=== PATIENT | female | born 1965 | race Caucasian/White ===

== ENCOUNTER → 2020-01-30 | Outpatient (CLI) | payer BC ==
[~2020-01-30] VITALS: Ht 160 cm; Wt 90.0 kg
[~2020-01-30] MED LIST: CARV6.25 PO; CARV6.252; CATHETER FLUSH 10 ML SYR IV PRN; ESTR0.3T PO; FURO40TA4 PO; HYDR-3583 PO; INSU100C7 SQ; MELA1TAB11 PO; MULT-241 PO; OMEP20CA6; OMEP20CA6 PO; SERT50TA PO; TRIA1TAB PO; TRIA50CA; TRM50T PO
[2020-01-30 12:54] VITALS: BP 154/90
--- NOTE | 2020-01-30 12:54 | Cardiology Stress Test Report ---
Stress Test Report Date of Procedure/Referring: Date of Procedure: Jan 30, 2020 PCP Emilio Hodge MD Admitting Physician Patti Tan MD Indications: Palpitation Baseline Heart Rate: 73 Baseline Blood Pressure: Blood Pressure Systolic: 154 Blood Pressure Diastolic: 90 Baseline EKG: Baseline EKG: normal sinus rhythm Summary: After explaining the procedure and details to the patient, she signed the consent and was brought to the stress nuclear laboratory. Patient exercised on standard Dhruv protocol, EKG, heart rate and blood pressure were monitored continuously, resting and stress doses of radio tracer were injected, imaging was acquired and reviewed in the short axis, horizontal long axis and vertical long axis views Patient was able to exercise for a total of 7:30 minutes on Dhruv protocol, METs 9.1 Maximum heart rate 151 Maximum blood pressure 256/93 Stress EKG, Minimal nondiagnostic changes Recovery EKG, Return to baseline TID: 1.09 SSS: 9 SDS: 5 EF: 70 Conclusion: 1. Fair exercise tolerance for total of 7 minutes and 30 seconds on Dhruv protocol, 9.1 METs achieving 91 percent of maximum expected heart rate 2. Exercise induced wide complex tachycardia/nonsustained ventricular tachycardia, patient was asymptomatic during the test 3. Severe hypertensive response to exercise with peak blood pressure 256/93 4. Breast attenuation with mild ischemia involving the basal to mid anterolateral and inferolateral wall 5. Normal left ventricular size, EF 70 percent EIMLIO HODGE MD Jan 30, 2020 12:54
== END ==
LOC: CARD 07:45
PROVIDERS: ATTEND Internal Medicine Cardiovascular Disease
DX: I27.20 Pulmonary hypertension, unspecified (principal); E11.9 Type 2 diabetes mellitus without complications; E78.5 Hyperlipidemia, unspecified
CPT/HCPCS: 78452; 93017; A9502

== ENCOUNTER → 2020-02-15 | Day surgery (SDC) | payer BC ==
[2020-02-15] VITALS (9 sets, daily range): BP systolic 153–204; BP diastolic 79–106
[~2020-02-15] VITALS: Ht 160 cm; Wt 93.0 kg
[~2020-02-15] MED LIST changes: +ALLO100T PO; +ATOR10TA PO; +ATOR10TA66 PO; -CATHETER FLUSH 10 ML SYR IV PRN; +HEParin (CATH LAB) 2,000 ML IV ONE; +HEParin 1000 UNIT/ML (10ML VIAL) FOR BOLUS ONE; +LIDOCAINE 1% INJ 20 ML 20 ML VIAL ONE; +MIDAZOLAM 5 MG/5 ML (VERSED) VIAL ONE; +MTP25TSR PO; +NITRO DRIP 25000 MCG/D5W 250 ML IV ONE; +NS IV 1000 ML 1,000 ML IV SCH; +NS IV 1000 ML 1,000 ML ONE; +VERAPAMIL 5 MG/2 ML (CALAN) VIAL IV ONE; +fentaNYL INJECTION 100 MCG/2 ML AMP ONE
[2020-02-15 07:41] LABS: BILIRUBIN,URINE NEGATIVE (NEGATIVE); CLARITY,URINE CLEAR; COLOR,URINE YELLOW; GLUCOSE, URINE (UA) NEGATIVE (NEGATIVE); HEMOGLOBIN 12.3 g/dL (11.5-16.0); KETONES,URINE NEGATIVE (NEGATIVE); LEUKOCYTE ESTERASE ,URINE TRACE (NEGATIVE); MEAN PLATELET VOLUME 10.8 fL (9.0-12.2); NITRITE,URINE NEGATIVE (NEGATIVE); PROTEIN,URINE NEGATIVE (NEGATIVE); WHITE BLOOD COUNT 5.9 10^3/uL (4.3-11.0)
[2020-02-15 07:49] LABS: BACTERIA,URINE NEGATIVE /HPF; RENAL EPITHELIAL CELLS,URINE 0-2 /HPF; SQUAMOUS EPITHELIAL CELL,UR 0-2 /HPF; WBC,URINE 0-2 /HPF
[2020-02-15 07:50] LABS: AMORPHOUS SEDIMENT,UR FEW AMOR URATES /LPF
[2020-02-15 07:53] LABS: INR 0.9 (0.8-1.4); PROTHROMBIN TIME PATIENT 12.8 SEC (12.2-14.7)
[2020-02-15 08:00] LABS: ALANINE AMINOTRANSFERASE 31 U/L (0-55); ALBUMIN 4.8 GM/DL (3.2-4.5); ALKALINE PHOSPHATASE 68 U/L (40-136); BILIRUBIN,TOTAL 0.6 MG/DL (0.1-1.0); BUN/CREATININE RATIO 14; CALCIUM 11.2 MG/DL (8.5-10.1); CARBON DIOXIDE 24 MMOL/L (21-32); CHLORIDE 104 MMOL/L (98-107); CHOLESTEROL 169 MG/DL (< 200); CREATININE SERUM 1.08 MG/DL (0.60-1.30); GFR ESTIMATED 53; GLUCOSE 205 MG/DL (70-105); HDL CHOLESTEROL 40 MG/DL (40-60); POTASSIUM 4.1 MMOL/L (3.6-5.0); SODIUM 141 MMOL/L (135-145); TOTAL PROTEIN 7.8 GM/DL (6.4-8.2); TRIGLYCERIDES 177 MG/DL (<150); VLDL CHOLESTEROL 35 MG/DL (5-40)
--- NOTE | 2020-02-15 08:19 | Cardiac Procedure Note-CS/ASA ---
Pre-Procedure Note Pre-Op Procedure Note H&P Reviewed The H&P was reviewed, patient examined and no changes noted. Date H&P Reviewed: Feb 15, 2020 Time H&P Reviewed: 08:19 Conscious Sedation Pre-Proced Time 08:19 ASA Score 3 For ASA 3 and 4: Consider anesthesia and medical clearance. Also, for patients with a history of failed moderate sedation consider anesthesia. Airway Lungs Heart ASA score ASA 1: a normal healthy patient ASA 2: a patient with a mild systemic disease (mid diabetes, controlled hypertension, obesity x ASA 3: a patient with a severe systemic disease that limits activity (angina, COPD, prior Myocardial infarction) ASA 4: a patient with an incapacitating disease that is a constant threat to life (CHF, renal failure) ASA 5: a moribund patient not expected to survive 24 hrs. (ruptured aneurysm) ASA 6: a declared brain- patient whose organs are being harvested. For emergent operations, add the letter E after the classification Mallampati Classification Grade 3 Sedation Plan Analgesia, Amnesia, Plan communicated to team members, Discussed options with patient/fam, Discussed risks with patient/fam The patient is an appropriate candidate to undergo the planned procedure, sedation, and anesthesia. The patient immediately re-assessed prior to indication. EMILIO LOPEZ MD Feb 15, 2020 08:19
--- NOTE | 2020-02-15 08:19 | Diagnostic Imaging Report ---
INDICATION: Chest pain. Portable chest 7:49 AM FINDINGS: Heart size and pulmonary vascularity are normal. Lungs are clear. There are no effusions or pneumothoraces. IMPRESSION: Negative chest. Dictated by: Dictated on workstation # [id number]
--- NOTE | 2020-02-15 09:55 | Discharge Inst-Post CATH ---
Discharge Inst-CATH/EP Problems Reviewed?: Yes Post Cardiac Cath/EP D/C Inst Follow Up/Plan Appointment with Dr. Hodge's office in 4 weeks <b>CARDIAC CATH/EP PROCEDURE DISCHARGE INSTRUCTIONS</b> ACTIVITY * Go Home directly and rest. * Limit activity of the leg (or wrist if it was used) for 7 days including aerobics, swimming, jogging, bicycling, etc. * Restrict stair-climbing for 7 days if possible, if not, climb up with your non-cath leg, then bring together on the same step. * Avoid lifting, pushing, pulling or excessive movement of the affected extremity for 7 days. * Customary sexual activity may be resumed after 2 days-use caution not to use a position that strains or causes pain to the affected extremity. * No driving for 24 hours. * NO SMOKING. * Avoid straining for bowel movements for 7 days. * Gentle walking on level ground is allowed. * Returning to work will depend on the type of procedure and the results. Your doctor will discuss this with you. CALL YOUR DOCTOR FOR ANY OF THE FOLLOWING: *If bleeding from the puncture site occurs- Apply gentle pressure to site with clean cloth and call your doctor or EMS. * If a knot or lump forms under the skin, increases in size, or causes pain. * If bruising appears to be worsening or moving further down your leg instead of disappearing. * Temperature above 101 F. CARE OF YOUR GROIN INCISION; * Bruising or purple discoloration of the skin near the puncture site is common. * You may shower only, no bathtub bathing for 5 days. Be careful to avoid slipping as your leg may feel stiff. * If a closure device was used on your femoral artery, please see the attached guide regarding care of the device and your leg. * Leave dressing on FOR 24 hours. CARE OF YOUR WRIST INCISION; * Bruising or purple discoloration of the skin near the puncture site is common. * You may shower. * DO NOT submerge wrist. * Leave dressing on FOR 24 hours. EMILIO HODGE MD Feb 15, 2020 09:55
--- NOTE | 2020-02-15 10:00 | Cardiac Cath Report ---
Cardiac Cath Report Physician (s)/Scale Model Maker (s) Physician EMILIO LOPEZ MD Pre-Procedure Diagnosis Pre-Procedure Diagnosis: chest pain, coronary artery disease Post-Procedure Note Procedure Start Date: Feb 15, 2020 Name of Procedure: Left heart catheterization Findings/Procedure Note PROCEDURE NOTE: After explaining the procedure to the patient, all pros and cons were explained, all questions were answered. The patient signed the consent and then she was placed on the cardiac catheterization laboratory. Groin was prepped SL fashion local anesthesia was used. Sheath placed in the right radial artery. [place] catheter was used, advanced to the left ventricular cavity, pressure was measured, pullback LV to aorta was done, intubated the right and left coronary system and angiogram was done. Left ventriculogram was not done, pressure was measured At the end of the procedure the sheath was removed. Vascular band was used FINDINGS: Hemodynamics LV 139/15, end-diastolic pressure 15 Aorta 131/65 mean of 94 ANATOMY: Left Main is free of obstructive disease Left Anterior Descending has mild to moderate disease in the proximal portion, nonobstructive disease otherwise no significant obstructive disease Left Circumflex is nondominant artery with no obstructive disease Right Coronory Artery is dominant artery with mild disease nonobstructive disease LV Gram was not done, pressure was measured CONCLUSION: 1. Lbaf-vc-bhaumlpp proximal LAD stenosis, nonobstructive disease otherwise no sig obstructive disease was noted 2. Normal left ventricular end-diastolic pressure DISCUSSION AND RECOMMENDATION: Abnormal stress test is probably due to extracardiac attenuation, medical therapy is recommended no intervention is warranted Anesthesia Type: Conscious Sedation Estimated blood loss (mL): 10 ml Contrast Amount: 30 ml Total Radiation Dose: 343 mGy Post-Procedure Diagnosis Post-operative diagnosis: Chest pain Coronary artery disease Hypertension Hyperlipidemia EMILIO LOPEZ MD Feb 15, 2020 10:00
--- NOTE | 2020-02-15 12:28 | NUR ---
NOTE TO DR LOPEZ CONCERNING PT'S ONGOING HTN, ORDERS WILL BE TAKEN.
--- NOTE | 2020-02-15 13:30 | NUR ---
DISCHARGED PER W/C, ACCOMPANIED BY VIJAYA, BY W/C TO WAITING PRIVATE CAR TO GO HOME
== END ==
LOC: CATH 09:00 → SDC 10:04
PROVIDERS: ATTEND Internal Medicine Cardiovascular Disease
DX: I25.10 Atherosclerotic heart disease of native coronary artery without angina pectoris (principal); I10 Essential (primary) hypertension; E78.5 Hyperlipidemia, unspecified; G47.33 Obstructive sleep apnea (adult) (pediatric); I27.20 Pulmonary hypertension, unspecified; I36.1 Nonrheumatic tricuspid (valve) insufficiency; R94.39 Abnormal result of other cardiovascular function study; K21.9 Gastro-esophageal reflux disease without esophagitis; M19.90 Unspecified osteoarthritis, unspecified site; E11.9 Type 2 diabetes mellitus without complications; Z79.899 Other long term (current) drug therapy; Z88.1 Allergy status to other antibiotic agents; Z90.49 Acquired absence of other specified parts of digestive tract; Z90.710 Acquired absence of both cervix and uterus; Z87.891 Personal history of nicotine dependence; Z80.9 Family history of malignant neoplasm, unspecified
CPT/HCPCS: 71045; 80053; 80061; 81000; 85027; 85610; 85730; 87081; 93458; C1894; 36415

== ENCOUNTER 2021-02-19 11:26 | Emergency (ER) | payer BC ==
[~2021-02-19] VITALS: Ht 160 cm; Wt 97.0 kg
[~2021-02-19 11:26] MED LIST changes: -HEParin (CATH LAB) 2,000 ML IV ONE; -HEParin 1000 UNIT/ML (10ML VIAL) FOR BOLUS ONE; -LIDOCAINE 1% INJ 20 ML 20 ML VIAL ONE; -MIDAZOLAM 5 MG/5 ML (VERSED) VIAL ONE; -NITRO DRIP 25000 MCG/D5W 250 ML IV ONE; -NS IV 1000 ML 1,000 ML IV SCH; -NS IV 1000 ML 1,000 ML ONE; -VERAPAMIL 5 MG/2 ML (CALAN) VIAL IV ONE; -fentaNYL INJECTION 100 MCG/2 ML AMP ONE
--- OUTSIDE RECORDS SUMMARY | 2021-02-19 11:29 | XMS REPORT | Clinical Summary ---
Author Author [facility] Organization [facility] Address Unknown Phone Unavailable Care Team Providers Care Acetylene Torch Operator Name Role Phone Tim Kunz MD Unavailable Patti Tan MD PCP Neida Catherine HIGH SCHOOL COMPUTER SCIENCE TEACHER-PERINATAL SPECIALIST Unavailable [phone] Shree Swanson MD Unavailable Vito De MD Unavailable Vito Garcia MD Unavailable Source Comments Some departments are not documenting in the electronic medical record. If you d o not see the information that you expected, contact Release of Information in [facility] Health Information Management department at [phone] for further assistan ce in locating additional records.[facility] Allergies Comments Active Allergy Reactions Severity Noted Date Erythromycin CHEST 10/12/2013 TIGHTNESS, SHORTNESS OF BREATH Medications End Date Status Medication Sig Dispensed Refills Start Date Active lisinopril (PRINIVIL; Take 20 mg by 0 ZESTRIL) 20 mg tablet mouth daily. Active sertraline (ZOLOFT) 50 mg Take 50 mg by 0 tablet mouth daily. Active omeprazole DR(+) Take 20 mg by 0 (PRILOSEC) 20 mg capsule mouth twice daily. Active turmeric root extract 500 Take by 0 mg cap mouth. Active HYDROcodone/acetaminophen Take 1 Tab by 0 (NORCO; VICODIN) 5-325 mg mouth every 4 tablet hours as needed. Active pravastatin (PRAVACHOL) Take 40 mg by 0 40 mg tablet mouth daily. Active insulin glargine (LANTUS Inject 40 0 SOLOSTAR) 100 unit/mL (3 Units into mL) injection PEN area(s) as directed at bedtime daily. 40 units AM, 35 units HS Active insulin lispro(+) Inject 20 0 (HUMALOG) 100 unit/mL Units into injection area(s) as directed three times daily before meals. Active ERGOCALCIFEROL (VITAMIN Take 2,000 mg 0 D2) (VITAMIN D PO) by mouth at bedtime daily. Active pregabalin (LYRICA) 50 mg Take 50 mg by 0 capsule mouth three times daily. Active topiramate (TOPAMAX) 25 Take 50 mg by 0 mg tablet mouth twice daily. Active Problems Problem Noted Date Polyarthralgia 10/12/2013 History of pulmonary hypertension 10/12/2013 Fatigue 10/12/2013 Rash 10/12/2013 GERD (gastroesophageal reflux disease) 10/12/2013 Medical History Medical History Date Comments Diabetes mellitus (HCC) Basal cell carcinoma Family History Medical History Relation Name Comments Cancer Mother skin Relation Name Status Comments Mother Social History Date Tobacco Use Types Packs/Day Years Used Never Smoker Comments Alcohol Use Standard Drinks/Week No 0 (1 standard drink = 0.6 o z pure alcohol) Sex Assigned at Date Recorded Not on file Last Filed Vital Signs Reading Time Taken Comments Vital Sign 127/76 11/15/2013 1:35 PM CDT Blood Pressure 72 11/15/2013 1:35 PM CDT Pulse 37.1 C (98.8 F) 11/15/2013 1:35 PM CDT Temperature 17 11/15/2013 1:35 PM CDT Respiratory Rate - - Oxygen Saturation - - Inhaled Oxygen Concentration 100.7 kg (222 lb) 01/24/2014 2:09 PM CDT Weight 160 cm (5' 3") 01/24/2014 2:09 PM CDT Height 39.33 01/24/2014 2:09 PM CDT Body Mass Index Plan of Treatment Health Maintenance Due Date Last Done Comments HIV SCREENING 01/17/1980 DTAP/TDAP VACCINES (1 - 1983 Tdap) PHYSICAL (COMPREHENSIVE) 1983 EXAM CERVICAL CANCER SCREENING 1986 BREAST CANCER SCREENING 2005 COLORECTAL CANCER 2015 SCREENING SHINGLES RECOMBINANT 2015 VACCINE (1 of 2) INFLUENZA VACCINE 11/18/2020 HEPATITIS C SCREENING Completed 10/12/2013 Results Not on filefrom Last 3 Months Insurance Type Payer Benefit Subscriber ID Effective Phone Address Plan / Dates Group PPO BCBS [facility] [id number] 2013- [facility] CARE Present BLUE [phone] Advance Directives Patient Information Services Tech Explanation Type Date Recorded Advance 10/12/2013 2:36 PM Directive/DPOA
--- NOTE | 2021-02-19 11:34 | ED Chest Pain ---
General Chief Complaint: Chest Pain Stated Complaint: CP Source: patient, EMS Exam Limitations: no limitations History of Present Illness Date Seen by Provider: Feb 19, 2021 Time Seen by Provider: 11:32 Initial Comments To ER by EMS from Dr. Baker's office in [facility] where she is employed with reports of sharp left-sided chest pain slightly worsened by breathing that radiates up into her neck and was associated with some shortness of breath and nausea. This began 15 minutes prior to calling EMS at about 11 AM. She was given 324 mg of aspirin chewable. No nitroglycerin. She was hypertensive initially about 1 80-200 systolic currently down to 160. She has a history of abnormal stress test in January 2020. That was followed with a cardiac catheterization showing mild to moderate proximal LAD stenosis with otherwise nonobstructive disease and no intervention. She has a history of hypertension and hyperlipidemia. Timing/Duration: 1 hour, changing over time Severity/Quality: moderate, sharp Location: central Radiation: neck Prior CP/Workup: no prior chest pain ASA po PODIATRIC PHYSICIAN: No NTG SL PODIATRIC PHYSICIAN: No Allergies and Home Medications Allergies Coded Allergies: erythromycin base (Unverified Allergy, Unknown, 07/05/10) Patient Home Medication List Home Medication List Reviewed: Yes Allopurinol (Allopurinol) 100 Mg Tablet, 100 MG PO BID, (Reported) Entered as Reported by: TIEN ANDREW on 02/15/20 07 Atorvastatin Calcium (Atorvastatin Calcium) 10 Mg Tablet, 10 MG PO HS, (Reported) Entered as Reported by: TIEN ANDREW on 02/15/20 0736 Atorvastatin Calcium (Lipitor) 10 Mg Tablet, 10 MG PO DAILY Prescribed by: EMILIO LOPEZ on 02/15/20 1106 Hydrocodone Bit/Acetaminophen (Lortab 5 Mg) 1 Tab Tab, 1-2 EA PO Q 4 - 6 HR PRN, (Reported) Entered as Reported by: SAMANTA AVENDANO on 07/05/10 1326 Metoprolol Succinate (Metoprolol Succinate) 25 Mg Tab.er.24h, 25 MG PO DAILY, (Reported) Entered as Reported by: TIEN ANDREW on 02/15/20 0736 Multivits W-Fe,Other Min (Flintstones Complete) 1 Tab.chew Tab.chew, 2 TAB.CHEW PO DAILY, (Reported) Entered as Reported by: JOSEPH ROMERO on 07/02/10 1352 Review of Systems Review of Systems Constitutional: see HPI EENTM: No Symptoms Reported Respiratory: No Symptoms Reported Cardiovascular: See HPI, Chest Pain Gastrointestinal: See HPI, Abdominal Pain Genitourinary: No Symptoms Reported Musculoskeletal: no symptoms reported Skin: no symptoms reported Psychiatric/Neurological: No Symptoms Reported Endocrine: No Symptoms Reported Hematologic/Lymphatic: No Symptoms Reported Past Auujbzb-Hrjijb-Cparta Hx Immunizations Up To Date Tetanus Booster (TDap): Less than 5yrs Past Medical History Abdominal, Adenoidectomy Respiratory: Yes (PULMONARY HYPERTENSION/SHORTNESS OF BREATH WITH EXERTION) Currently Using BIPAP: Yes Cardiac: Yes Neurological: No Reproductive Disorders: No Genitourinary: Yes Gastrointestinal: Yes (DIVERTICULITIS) Cancer: No Blood Disorders: Yes Physical Exam Vital Signs Vital Signs - First Documented 02/19/21 11:26 Temp 36.3 Pulse 60 Resp 16 B/P (MAP) 193/122 (145) Pulse Ox 97 O2 Delivery Room Air Capillary Refill : Height, Weight, BMI Height: '" Weight: lbs. oz. kg; 36.32 BMI Method: General Appearance: No Apparent Distress, WD/WN Neck: Full Range of Motion, Normal Inspection Respiratory: Lungs Clear, Normal Breath Sounds, No Accessory Muscle Use, No Respiratory Distress Cardiovascular: Regular Rate, Rhythm, Normal Peripheral Pulses Gastrointestinal: Normal Bowel Sounds, Non Tender, Soft Extremity: Normal Capillary Refill, Normal Inspection Neurologic/Psychiatric: Alert, Oriented x3 Skin: Normal Color, Warm/Dry Progress/Results/Core Measures Results/Orders Lab Results Laboratory Tests Test 02/19/21 11:40 02/19/21 13:58 Range/Units White Blood Count 6.6 4.3-11.0 10^3/uL Red Blood Count 4.57 3.80-5.11 10^6/uL Hemoglobin 14.0 11.5-16.0 g/dL Hematocrit 42 35-52 % Mean Corpuscular Volume 91 80-99 fL Mean Corpuscular Hemoglobin 31 25-34 pg Mean Corpuscular Hemoglobin Concent 34 32-36 g/dL Red Cell Distribution Width 13.5 10.0-14.5 % Platelet Count 176 130-400 10^3/uL Mean Platelet Volume 11.5 9.0-12.2 fL Immature Granulocyte % (Auto) 1 % Neutrophils (%) (Auto) 67 42-75 % Lymphocytes (%) (Auto) 21 12-44 % Monocytes (%) (Auto) 9 0-12 % Eosinophils (%) (Auto) 2 0-10 % Basophils (%) (Auto) 1 0-10 % Neutrophils # (Auto) 4.4 1.8-7.8 10^3/uL Lymphocytes # (Auto) 1.4 1.0-4.0 10^3/uL Monocytes # (Auto) 0.6 0.0-1.0 10^3/uL Eosinophils # (Auto) 0.2 0.0-0.3 10^3/uL Basophils # (Auto) 0.0 0.0-0.1 10^3/uL Immature Granulocyte # (Auto) 0.0 0.0-0.1 10^3/uL Prothrombin Time 13.3 12.2-14.7 SEC INR Comment 1.0 0.8-1.4 Activated Partial Thromboplast Time 30 24-35 SEC Sodium Level 137 135-145 MMOL/L Potassium Level 4.6 3.6-5.0 MMOL/L Chloride Level 104 98-107 MMOL/L Carbon Dioxide Level 19 L 21-32 MMOL/L Anion Gap 14 5-14 MMOL/L Blood Urea Nitrogen 19 H 7-18 MG/DL Creatinine 0.84 0.60-1.30 MG/DL Estimat Glomerular Filtration Rate 70 BUN/Creatinine Ratio 23 Glucose Level 148 H 70-105 MG/DL Calcium Level 9.9 8.5-10.1 MG/DL Corrected Calcium 8.5-10.1 MG/DL Magnesium Level 1.9 1.6-2.4 MG/DL Total Bilirubin 0.5 0.1-1.0 MG/DL Aspartate Amino Transf (AST/SGOT) 60 H 5-34 U/L Alanine Aminotransferase (ALT/SGPT) 75 H 0-55 U/L Alkaline Phosphatase 101 40-136 U/L Myoglobin 39.8 10.0-92.0 NG/ML Troponin I < 0.028 <0.028 NG/ML B-Type Natriuretic Peptide < 10.0 <100.0 PG/ML Total Protein 7.7 6.4-8.2 GM/DL Albumin 4.7 H 3.2-4.5 GM/DL Procalcitonin 0.13 H <0.10 NG/ML My Orders Orders - MCKINLEY LINN APRN Fentanyl Inj (Sublimaze Injection) (02/19/21 11:45) Clonidine Tablet (Catapres Tablet) (02/19/21 11:45) Cbc With Automated Diff (02/19/21 11:55) Magnesium (02/19/21 11:55) Chest 1 View, Ap/Pa Only (02/19/21 11:55) Ekg Tracing (02/19/21 11:55) Comprehensive Metabolic Panel (02/19/21 11:55) Myoglobin Serum (02/19/21 11:55) Protime With Inr (02/19/21 11:55) Partial Thromboplastin Time (02/19/21 11:55) O2 (02/19/21 11:55) Monitor-Rhythm Ecg Trace Only (02/19/21 11:55) Lipid Panel (02/20/21 06:00) Ed Iv/Invasive Line Start (02/19/21 11:55) BNP (02/19/21 11:55) Troponin I (02/19/21 11:55) Ondansetron Injection (Zofran Injectio (02/19/21 12:15) Ondansetron Injection (Zofran Injectio (02/19/21 12:07) Procalcitonin (Pct) (02/19/21 12:21) Troponin I (02/19/21 13:27) Medications Given in ED Current Medications Medications Dose Ordered Sig/Alcides Route Start Time Stop Time Status Last Admin Dose Admin Ondansetron HCl 4 mg ONCE ONCE IVP 02/19/21 12:15 02/19/21 12:16 DC 02/19/21 12:08 4 MG Vital Signs/I&O 02/19/21 11:26 Temp 36.3 Pulse 60 Resp 16 B/P (MAP) 193/122 (145) Pulse Ox 97 O2 Delivery Room Air Departure Communication (Admissions) Her EKG shows sinus rhythm at 61 no ectopy normal intervals no ST segment change. 1423-her pain is gone. She does report that she choked on some CABG a few days ago, given this with the infiltrate seen on x-ray could represent an aspiration pneumonitis. As such we will put her on some Levaquin/prednisone and discharge home. Impression Primary Impression: Chest pain Additional Impression: Aspiration pneumonitis Disposition: HOME, SELF-CARE Condition: Stable Departure-Patient Inst. Decision time for Depature: 14:22 Referrals: LIANA STANLEY MD (PCP/Family) Primary Care Physician Patient Instructions: Community-Acquired Pneumonia in Adults Scripts Levofloxacin (Levofloxacin) 500 Mg Tablet 500 MG PO DAILY, #5 TAB Prov: MCKINLEY LINN APRN 02/19/21 Prednisone (Prednisone) 20 Mg Tab 40 MG PO DAILY, #6 TAB 0 Refills Prov: MCKINLEY LINN APRN 02/19/21 MCKINLEY LINN APRN Feb 19, 2021 11:34
[2021-02-19] MEDS ORDERED: cloNIDine 0.1 MG (CATAPRES) TAB PO ONE (11:45)
[2021-02-19] MEDS ORDERED: fentaNYL INJ 100 MCG/2 ML AMP IVP ONE (11:45)
[2021-02-19 12:03] LABS: BASOPHILS % (AUTO) 1 % (0-10); EOSINOPHILS # (AUTO) 0.2 10^3/uL (0.0-0.3); EOSINOPHILS % (AUTO) 2 % (0-10); HEMATOCRIT 42 % (35-52); LYMPHOCYTES # (AUTO) 1.4 10^3/uL (1.0-4.0); LYMPHOCYTES % (AUTO) 21 % (12-44); MEAN CORPUSCULAR HEMOGLOBIN 31 pg (25-34); MEAN CORPUSCULAR HGB CONC 34 g/dL (32-36); MEAN CORPUSCULAR VOLUME 91 fL (80-99); MEAN PLATELET VOLUME 11.5 fL (9.0-12.2); MONOCYTES # (AUTO) 0.6 10^3/uL (0.0-1.0); MONOCYTES % (AUTO) 9 % (0-12); NEUTROPHILS # (AUTO) 4.4 10^3/uL (1.8-7.8); NEUTROPHILS % (AUTO) 67 % (42-75); PLATELET COUNT 176 10^3/uL (130-400); WHITE BLOOD COUNT 6.6 10^3/uL (4.3-11.0)
[2021-02-19] MEDS ORDERED: ONDANSETRON 4 MG/2 ML (SDV) Z0FRAN ONE (12:07)
[2021-02-19 12:09] LABS: PROTHROMBIN TIME PATIENT 13.3 SEC (12.2-14.7)
[2021-02-19] MEDS ORDERED: ONDANSETRON 4 MG/2 ML (SDV) Z0FRAN IVP ONE (12:15)
[2021-02-19 12:16] LABS: ALANINE AMINOTRANSFERASE 75 U/L (0-55); ALBUMIN 4.7 GM/DL (3.2-4.5); ALKALINE PHOSPHATASE 101 U/L (40-136); BILIRUBIN,TOTAL 0.5 MG/DL (0.1-1.0); BUN/CREATININE RATIO 23; CALCIUM 9.9 MG/DL (8.5-10.1); CARBON DIOXIDE 19 MMOL/L (21-32); CHLORIDE 104 MMOL/L (98-107); CREATININE SERUM 0.84 MG/DL (0.60-1.30); GFR ESTIMATED 70; GLUCOSE 148 MG/DL (70-105); MAGNESIUM 1.9 MG/DL (1.6-2.4); POTASSIUM 4.6 MMOL/L (3.6-5.0); SODIUM 137 MMOL/L (135-145); TOTAL PROTEIN 7.7 GM/DL (6.4-8.2)
--- NOTE | 2021-02-19 12:19 | Diagnostic Imaging Report ---
INDICATION: Chest pain. TIME OF EXAM: 1206 PM Correlation is made with prior chest of 02/15/2020. Heart size is normal. Patient has developed infiltrates in the mid and lower lung escobedo bilaterally suggestive of pneumonia. There is no effusion or pneumothorax detected. IMPRESSION: Bibasilar pulmonary infiltrates. Dictated by: Dictated on workstation # [id number]
[2021-02-19] MEDS ORDERED: PRD20T PO (14:25)
[2021-02-19] MEDS ORDERED: LEVO500T80 PO (14:25)
[2021-02-19 14:40] VITALS: BP 135/83
== END 2021-02-19 14:40 | disposition home or self-care (01) ==
LOC: ER 11:26
DX: R07.9 Chest pain, unspecified (principal); J69.0 Pneumonitis due to inhalation of food and vomit; I10 Essential (primary) hypertension
CPT/HCPCS: 36415; 71045; 80053; 83735; 83874; 83880; 84145; 84484; 85025; 85610; 85730; 93005; 93041

== ENCOUNTER 2022-01-02 05:36 | Outpatient (CLI) | payer BC ==
[~2022-01-02] VITALS: Ht 160 cm; Wt 99.5 kg
[~2022-01-02 05:36] MED LIST changes: +LEVO-55 PO; +PRD20T PO
[2022-01-03] MEDS ORDERED: INSU100V37 SQ (12:22)
[2022-01-03] MEDS ORDERED: INSU100I14 SQ (12:22)
[2022-01-03] MEDS ORDERED: GABA300T25 PO (12:22)
[2022-01-03] MEDS ORDERED: CYCL10TA25 PO (12:22)
[2022-01-03] MEDS ORDERED: ESOM40CA52 PO (12:22)
[2022-01-03] MEDS ORDERED: METO50TA7 PO (12:22)
[2022-01-03] MEDS ORDERED: LISI10TA25 PO (12:22)
[2022-01-03] MEDS ORDERED: FURO-124 PO (12:22)
[2022-01-03] MEDS ORDERED: OMEP40CA6 PO (12:22)
== END 2022-01-03 12:22 | disposition home or self-care (01) ==
LOC: PREOP 05:36
PROVIDERS: ATTEND Surgery
DX: Z01.818 Encounter for other preprocedural examination (principal)

== ENCOUNTER 2022-01-08 14:01 | Day surgery (SDC) | payer BC ==
--- NOTE | 2022-01-02 08:00 | HISTORY AND PHYSICAL ---
DATE OF SERVICE: ADMITTING PRIMARY CARE PHYSICIAN: Dr. Dave Baker. HISTORY OF PRESENT ILLNESS: The patient is a 56-year-old female known to us. She has had a history of diverticulitis as well as low level inflammatory bowel disease. We had done a colonoscopy on her on 11/14/2019 and she was found to have significant diverticulosis; however, patchy areas of inflammation consistent with colitis, which were biopsied and consistent with focal active colitis. She was referred to gastroenterology; however, was instructed to discontinue her metformin and no other therapy. She reports at this time, she has had worsening gastroesophageal reflux disease. She has had this for many years; however, this has worsened in the past year. She also has developed regurgitation as well as dysphagia. She does not report any hematemesis, no coffee ground emesis. PAST MEDICAL HISTORY: Hypertension, diabetes, hypercholesterolemia, colitis. PAST SURGICAL HISTORY: Open cholecystectomy and appendectomy 1986, open hysterectomy 1987, laparoscopic removal persistent ovary 2011. ALLERGIES: EFFEXOR XR, ERYTHROMYCIN, JARDIANCE. MEDICATIONS: Fluconazole 150 mg daily, lisinopril 10 mg daily, detemir insulin 35 units daily, promethazine/codeine syrup 6.25/10 mg q.6 hours p.r.n., Lasix 40 mg daily, insulin lispro 10 units t.i.d., Toprol-XL 50 mg daily, Januvia 100 mg daily, atorvastatin 10 mg daily, aspartate insulin 10 units t.i.d., cyclobenzaprine 10 mg p.r.n. SOCIAL HISTORY: Negative smoke, negative alcohol. FAMILY HISTORY: Mother, diabetes. Maternal grandfather, gastric cancer. VITAL SIGNS: Blood pressure 144/94, current weight 219.3 pounds, 5 foot 3 inches. REVIEW OF SYSTEMS: Well-nourished female currently in no acute distress. She is not experiencing any shortness of breath or difficulty breathing. No chest pain, palpitations or diaphoresis. She is having worsening epigastric burning sensation as well as regurgitation and dysphagia. No hematemesis, no coffee ground emesis. Intermittent episodes of crampy abdominal pain as well as loose stools. No red blood per rectum, no dark tarry stools. No fever or chills, no recent inadvertent weight loss. All other review of systems negative. PHYSICAL EXAMINATION: CHEST: Clear. Good breath sounds bilaterally. HEART: Regular, no murmurs. EXTREMITIES: No lower extremity edema, negative Homans sign. HEENT: No scleral icterus. NECK: No cervical lymphadenopathy. ABDOMEN: Soft, nondistended with mild discomfort in the epigastric region upon deep palpation. SKIN: Warm, dry. ASSESSMENT AND PLAN: A 56-year-old female with worsening gastroesophageal reflux disease with known history of hiatal hernia as well. We will schedule her for an EGD as well as biopsies as appropriate as well as the necessary lifestyle and dietary accommodation including small and more frequent meals, avoidance of eating at night as well as head elevation while lying supine. She also needs to avoid caffeinated beverages, spicy, greasy and acidic foods and proceed with any weight loss modality. Job ID: [id number] DocumentID: [id number] Dictated Date: 12/31/2021 16:28:40 Admission Specialist Date: 12/31/2021 16:56:26 Dictated By: HELDER CARRENO MD
[~2022-01-08] VITALS: Ht 160 cm; Wt 99.5 kg
[2022-01-08] VITALS (10 sets, daily range): BP systolic 112–188; BP diastolic 55–97
[~2022-01-08 14:01] MED LIST changes: +CYCL10TA25 PO; +ESOM40CA52 PO; +FURO-124 PO; +GABA300T25 PO; +INSU100I14 SQ; +INSU100V37 SQ; +LISI10TA25 PO; +METO50TA7 PO; +OMEP40CA6 PO
[2022-01-08] MEDS ORDERED: LACTATED RINGERS 1,000 ML IV STA (14:04)
[2022-01-08] MEDS ORDERED: LIDOCAINE JELLY 2% 6 ML SYRINGE MM PRN (14:15)
[2022-01-08] MEDS ORDERED: HURRICAINE EXT TUBE (BENZOCAINE) XX PRN (14:15)
--- NOTE | 2022-01-08 14:52 | Progress Note-Pre Operative ---
Pre-Operative Progress Note Date of Available H&P: Jan 08, 2022 Date H&P Reviewed: Jan 08, 2022 Time H&P Reviewed: 14:00 History & Physical: No changes noted Pre-Operative Diagnosis: GERD HELDER CARRENO MD Jan 08, 2022 14:52
--- NOTE | 2022-01-08 14:53 | Discharge Inst-Surgical ---
D/C Lap Instructions-EV Follow Up Appt in 2 weeks Activity as tolerated High Fiber Diet 25g or more per day Avoid Alcohol, Caffeine, Spicy [place] and Acid foods. Drink 64 fluid oz or more of fluids per day. Symptoms to Report: Fever over 101 degree F, Nausea/Vomiting If any problems/questions: Contact your physician or go to Emergency Room HELDER CARRENO MD Jan 08, 2022 14:53
[2022-01-08] MEDS ORDERED: ONDANSETRON 4 MG/2 ML (SDV) Z0FRAN IVP PRN (15:00)
[2022-01-08] MEDS ORDERED: ONDANSETRON 4 MG (ZOFRAN) ORAL DISSOLVE TAB PO PRN (15:00)
[2022-01-08] MEDS ORDERED: MIDAZOLAM 5 MG/5 ML (VERSED) VIAL ONE (15:47)
[2022-01-08] MEDS ORDERED: fentaNYL INJ 100 MCG/2 ML AMP ONE (15:48)
[2022-01-08] MEDS: fentaNYL INJ 100 MCG/2 ML AMP IVP PRN ×2 (15:58→16:01)
--- NOTE | 2022-01-08 16:28 | Progress Note-Post Operative ---
Post-Operative Progess Note Surgeon (s)/Compensation Expert (s) Surgeon HELDER CARRENO MD Compensation Expert: none Pre-Operative Diagnosis GERD Post-Operative Diagnosis reflux esophagitis(grade B), small HH(1.5cm), moderate gastritis and duodenitis. Procedure & Operative Findings Date of Procedure 01/08/22 Procedure Performed/Findings EGD with bx. Anesthesia Type mac Estimated Blood Loss Estimated blood loss (mL): minimal Specimens/Packing Specimens Removed ge jxn, antrum, duodenum HELDER CARRENO MD Jan 08, 2022 16:28
[2022-01-08] MEDS ORDERED: MIDAZOLAM 5 MG/5 ML (VERSED) VIAL IVP ONE (17:00)
--- NOTE | 2022-01-09 01:09 | OPERATIVE REPORT ---
DATE OF SERVICE: 01/08/2022 ATTENDING AND PRIMARY CARE PHYSICIAN: PREOPERATIVE DIAGNOSIS: Gastroesophageal reflux disease. POSTOPERATIVE DIAGNOSIS: Reflux esophagitis, Dundy grade B, small hiatal hernia 1.5 cm in size, moderate gastritis, moderate duodenitis. PROCEDURE: EGD with biopsy. SURGEON: Helder Carreno MD. ANESTHESIA: Conscious sedation. ESTIMATED BLOOD LOSS: Minimal. FINDINGS: Same as postoperative diagnosis. DISPOSITION: The patient tolerated the procedure well. INDICATIONS: The patient is a 56-year-old female known to us. She was referred over to us for recurrent episodes of diverticulitis. She underwent a colonoscopy with biopsies and she was found to have chronic between stage II and III external and internal hemorrhoids as well as a moderate to severe sigmoid diverticulosis as well as mild colitis of the ascending colon. Biopsies of the ascending colon were consistent with focal active colitis with benign mucosal lymphoid aggregates and she was started on mesalamine; however, did not fill the medication due to the cost. She returned to the office with worsening reflux with epigastric crampy pain for the past two months, which has worsened. She does not report any regurgitation as well as no alec episodes of nausea or vomiting as well as no hematemesis, no coffee-ground emesis. She is currently taken omeprazole daily. DESCRIPTION OF PROCEDURE: The patient was brought to the endoscopy suite, laid in the left lateral decubitus position. After adequate IV pain and sedative medications and conscious sedation anesthesia, the mouthpiece was applied. The endoscope was placed in the mouth, visualizing the pharynx and hypopharyngeal region. Vocal cords, epiglottis and vallecula identified and appeared to be normal. The endoscope was then gently intubated into the esophageal opening and esophagus insufflated. The endoscope was then advanced to the first, second and third portion of esophagus at the level of the GE junction, reflux esophagitis, Dundy grade B identified. There were no ulcers or strictures identified in this region. A biopsy was taken with forceps with visualization of good hemostasis. The endoscope was then advanced in the stomach and endoscope retroflexed, visualizing a small hiatal hernia approximately 1.5 cm in size. Through visualization of the stomach, there was a moderate gastritis more towards the stomach, antrum and a biopsy was taken of the antrum with forceps with visualization of good hemostasis. The endoscope was then advanced to the first and second portion of the duodenum where a moderate duodenitis was also identified and a biopsy was taken with forceps with visualization of good hemostasis. The endoscope was then slowly withdrawn while taking a second look and suctioning of residual air with no additional findings. The patient tolerated the procedure well. We will await the biopsy results; however, we will recommend the necessary lifestyle and dietary accommodation including small and more frequent meals, avoidance of eating at night as well as head elevation while lying supine. She also needs to avoid caffeinated beverages, spicy, greasy and acidic foods. She is currently on omeprazole; however, this appears to not be effective enough and we will start her on pantoprazole 40 mg to be taken at a separate time during the day. CC: Dr. Dave Baker - requested, unable to deliver Job ID: [id number] DocumentID: [id number] Dictated Date: 01/08/2022 16:12:29 Metal Miner Date: 01/09/2022 01:09:32 Dictated By: HELDER CARRENO MD MTDD
[2022-01-09] MEDS ORDERED: HYDR-3817 PO ×3 (16:54→16:57)
== END 2022-01-08 16:50 | disposition home or self-care (01) ==
LOC: ENDO 14:01
PROVIDERS: ATTEND Surgery
DX: K21.00 Gastro-esophageal reflux disease with esophagitis, without bleeding (principal); K31.89 Other diseases of stomach and duodenum; K44.9 Diaphragmatic hernia without obstruction or gangrene; K29.70 Gastritis, unspecified, without bleeding; K29.80 Duodenitis without bleeding; Z79.4 Long term (current) use of insulin; Z79.899 Other long term (current) drug therapy

== ENCOUNTER 2022-01-09 15:27 | Emergency (ER) | payer BC ==
[~2022-01-09] VITALS: Ht 160 cm; Wt 99.5 kg
[2022-01-09] MEDS ORDERED: NS IV 1000 ML 1,000 ML IV SCH (15:45)
[2022-01-09] MEDS ORDERED: morphine INJ 10 MG/ML 1ML (SYR OR VIAL) IVP STA ×2 (15:45→16:49)
[2022-01-09] MEDS ORDERED: ONDANSETRON 4 MG/2 ML (SDV) Z0FRAN IVP ONE (15:45)
--- NOTE | 2022-01-09 15:48 | ED Lower Extremity ---
General Chief Complaint: Lower Extremity Stated Complaint: FALL Nursing Triage Note: PT BROUGHT IN BY [facility] FROM HOME. PT WAS ON A STEP LADDER IN KITCHEN, LOST HER FOOTING AND FELL, LANDING ON LEFT ANKLE. Source: patient Exam Limitations: no limitations History of Present Illness Date Seen by Provider: Jan 09, 2022 Time Seen by Provider: 15:40 Initial Comments Patient is a 56-year-old female who presents to the emergency room by ambulance after falling off a 2 step ladder in her home. She lost her balance, had immediate pain and swelling. Inability to bear weight. History of diabetes, hypertension. No recent illnesses. All other review of systems reviewed and negative except as stated Onset: just prior to arrival Severity: severe Pain/Injury Location: left ankle Method of Injury: fell Modifying Factors: Improves With Immobilization; Worse With Movement Allergies and Home Medications Allergies Coded Allergies: erythromycin base (Unverified Allergy, Unknown, 07/05/10) Patient Home Medication List Home Medication List Reviewed: Yes Atorvastatin Calcium (Atorvastatin Calcium) 10 Mg Tablet, 10 MG PO HS, (Reported) Entered as Reported by: TIEN ANDREW on 02/15/20 0736 Cyclobenzaprine HCl (Cyclobenzaprine HCl) 10 Mg Tablet, 10 MG PO TID, (Reported) Entered as Reported by: WANDA TOLEDO on 01/03/22 1222 Esomeprazole Magnesium (Esomeprazole Magnesium) 40 Mg Capsule.dr, 40 MG PO DAILY, (Reported) Entered as Reported by: WANDA TOLEDO on 01/03/22 1222 Furosemide (Lasix) 40 Mg Tablet, 40 MG PO PRN, (Reported) Entered as Reported by: WANDA TOLEDO on 01/03/22 1222 Gabapentin Enacarbil (Horizant) 300 Mg Tablet.er, 300 MG PO DAILY, (Reported) Entered as Reported by: WANDA TOLEDO on 01/03/22 1222 Hydrocodone Bit/Acetaminophen (Lortab 5 Mg) 1 Tab Tab, 1-2 EA PO Q 4 - 6 HR PRN, (Reported) Entered as Reported by: SAMANTA AVENDANO on 07/05/10 1326 Hydrocodone/Acetaminophen (Hydrocodone-Acetamin 7.5-325) 7.5 Mg-325 Mg Tablet, 1 EACH PO Q6H PRN for PAIN-MODERATE (5-7) Prescribed by: ZAID VARGAS on 01/09/22 1657 Insulin Aspart (Novolog Flexpen) 100 Unit/Ml (3 Ml) Solution, 15 UNITS SQ AC, (Reported) Entered as Reported by: WANDA TOLEDO on 01/03/22 1222 Insulin Degludec (Tresiba) 100 Unit/Ml Vial, 100 UNIT SQ UD, (Reported) Entered as Reported by: WANDA TOLEDO on 01/03/22 1222 Lisinopril (Lisinopril) 10 Mg Tablet, 10 MG PO DAILY, (Reported) Entered as Reported by: WANDA TOLEDO on 01/03/22 1222 Metoprolol Succinate (Metoprolol Succinate) 50 Mg Tab.er.24h, 50 MG PO DAILY, (Reported) Entered as Reported by: WANDA TOLEDO on 01/03/22 1222 Omeprazole (Omeprazole) 40 Mg Capsule.dr, 40 MG PO DAILY, (Reported) Entered as Reported by: WANDA TOLEDO on 01/03/22 1222 Discontinued Medications Allopurinol (Allopurinol) 100 Mg Tablet, 100 MG PO BID, (Reported) Discontinued Reason: No Longer Taking Entered as Reported by: TIEN ANDREW on 02/15/20 0736 Atorvastatin Calcium (Lipitor) 10 Mg Tablet, 10 MG PO DAILY Discontinued Reason: No Longer Taking Prescribed by: EMILIO LOPEZ on 02/15/20 1106 Levofloxacin (Levofloxacin) 500 Mg Tablet, 500 MG PO DAILY Discontinued Reason: No Longer Taking Prescribed by: MCKINLEY LINN on 02/19/21 1425 Metoprolol Succinate (Metoprolol Succinate) 25 Mg Tab.er.24h, 25 MG PO DAILY, (Reported) Discontinued Reason: No Longer Taking Entered as Reported by: TIEN ANDREW on 02/15/20 0736 Multivits W-Fe,Other Min (Flintstones Complete) 1 Tab.chew Tab.chew, 2 TAB.CHEW PO DAILY, (Reported) Discontinued Reason: No Longer Taking Entered as Reported by: JOSEPH ROMERO on 07/02/10 1352 Prednisone (Prednisone) 20 Mg Tab, 40 MG PO DAILY Discontinued Reason: No Longer Taking Prescribed by: MCKINLEY LINN on 02/19/21 1425 Review of Systems Constitutional: see HPI EENTM: no symptoms reported Respiratory: no symptoms reported Cardiovascular: no symptoms reported Gastrointestinal: no symptoms reported Genitourinary: no symptoms reported Musculoskeletal: joint pain (left ankle) Skin: no symptoms reported All Other Systems Reviewed Negative Unless Noted: Yes Past Dmjqwiy-Eslvxe-Iephqt Hx Patient Social History Tobacco Use?: No Use of E-Cig and/or Vaping dev: No Substance use?: No Alcohol Use?: No Pt feels they are or have been: No Immunizations Up To Date Tetanus Booster (TDap): Less than 5yrs First/Initial COVID19 Vaccinat: 01/08 Second COVID19 Vaccination Steve: 01/08 Third COVID19 Vaccination Date: NO Seasonal Allergies Seasonal Allergies: No Past Medical History Surgeries: Yes Abdominal, Adenoidectomy, Gallbladder, Hysterectomy Respiratory: No (NON-COMPLIANT WITH CPAP) Sleep Apnea Currently Using CPAP: No Currently Using BIPAP: No Cardiac: Yes High Cholesterol, Hypertension Neurological: No Reproductive Disorders: No Sexually Transmitted Disease: No Genitourinary: Yes Gastrointestinal: Yes (DIVERTICULITIS, "FATTY LIVER") Musculoskeletal: Yes (ARTHRITIS) Endocrine: Yes HEENT: No Cancer: No Psychosocial: No Integumentary: No Blood Disorders: Yes Physical Exam Vital Signs Vital Signs - First Documented 01/09/22 15:27 Temp 36.1 Pulse 76 Resp 17 B/P (MAP) 222/108 (146) Pulse Ox 96 O2 Delivery Room Air Capillary Refill : Less Than 3 Seconds Height, Weight, BMI Height: '" Weight: lbs. oz. kg; 38.00 BMI Method: General Appearance: WD/WN, no apparent distress HEENT: PERRL/EOMI, pharynx normal Neck: full range of motion Cardiovascular: regular rate, rhythm Respiratory: lungs clear, normal breath sounds, no respiratory distress, no accessory muscle use Hips: bilateral hip non-tender, bilateral hip normal inspection, bilateral hip normal range of motion, bilateral hip no evidence of injury Legs: bilateral leg non-tender, bilateral leg normal inspection, bilateral leg normal range of motion, bilateral leg no evidence of injury Knees: bilateral knee non-tender, bilateral knee normal inspection, bilateral knee normal range of motion, bilateral knee no evidence of injury Ankles: left ankle deformity, left ankle ecchymosis, left ankle limited range of motion, left ankle pain, left ankle soft tissue tenderness, left ankle swelling (lateral malleolus) Feet: bilateral foot non-tender, bilateral foot normal inspection, bilateral foot normal range of motion, bilateral foot no evidence of injury Neurologic/Tendon: normal sensation, normal motor functions, normal tendon functions Neurologic/Psychiatric: alert, normal mood/affect, oriented x 3 Skin: normal color, warm/dry Procedures/Interventions Splinting and Joint Reduction : Location: left ankle Pre-Proc Neuro Vasc Exam: normal Post-Proc Neuro Vasc Exam: normal Pre-Procedure NV Exam: Yes Hand-Made Type: orthoglass Splint Application: Short Leg (with stirrup) Progress/Results/Core Measures Results/Orders My Orders Orders - ZAID VARGAS MD Ed Iv/Invasive Line Start (01/09/22 15:45) Ankle, Left, 3 Views (01/09/22 15:45) Morphine Injection (Morphine Injection (01/09/22 15:45) Ondansetron Injection (Zofran Injectio (01/09/22 15:45) Ns Iv 1000 Ml (Sodium Chloride 0.9%) (01/09/22 15:45) Morphine Injection (Morphine Injection (01/09/22 16:49) Hydrocodone/Apap 7.5/325 Tab (Lortab 7. (01/09/22 17:00) Medications Given in ED Current Medications Medications Dose Ordered Sig/Alcides Route Start Time Stop Time Status Last Admin Dose Admin Acetaminophen/ Hydrocodone Bitart 1 ea ONCE ONCE PO 01/09/22 17:00 01/09/22 17:01 DC 01/09/22 16:54 1 EA Ondansetron HCl 4 mg ONCE ONCE IVP 01/09/22 15:45 01/09/22 15:47 DC 01/09/22 15:49 4 MG Vital Signs/I&O 01/09/22 15:27 Temp 36.1 Pulse 76 Resp 17 B/P (MAP) 222/108 (146) Pulse Ox 96 O2 Delivery Room Air Blood Pressure Mean: 146 Departure Impression Primary Impression: Bimalleolar fracture of left ankle Qualified Codes: S82.842A - Displaced bimalleolar fracture of left lower leg, initial encounter for closed fracture Disposition: HOME, SELF-CARE Condition: Improved Departure-Patient Inst. Decision time for Depature: 16:52 Referrals: FILEMON EARLY MD (PCP/Family) Primary Care Physician STEPHANIE BLUM MD Patient Instructions: Ankle Fracture ED Add. Discharge Instructions: Keep the splint on, do not take it off until you follow-up with the bone doctor, Dr. Blum. Please call his office first thing in the morning for a follow-up appointment next week. Keep your left ankle elevated above the level of your heart to keep the swelling down. Also apply ice packs to the left ankle 20 minutes at a time 4-6 times a day. Pain medication, hydrocodone 7.5 mg 1 every 6 hours with an additional Tylenol tablet for pain. Take hydrocodone with food. Hydrocodone can cause constipation, you should take a stool softener daily while on this medication. Return to the emergency department for any increased pain, swelling, discoloration of the toes or other emergent, concerning symptoms Scripts Hydrocodone/Acetaminophen (Hydrocodone-Acetamin 7.5-325) 7.5 Mg-325 Mg Tablet 1 EACH PO Q6H PRN for PAIN-MODERATE (5-7), #20 TAB Prov: ZAID VARGAS MD 01/09/22 Copy Copies To 1: STEPHANIE BLUM MD, KATHRYN M MD Jan 09, 2022 15:48
--- NOTE | 2022-01-09 16:33 | Diagnostic Imaging Report ---
HISTORY: Left ankle pain after fall. TECHNIQUE: 3 views of the left ankle COMPARISON: None FINDINGS: There is a vertically oriented mildly medially displaced fracture of the medial malleolus. There is a minimally displaced Willams type B fracture of the lateral malleolus. Ankle mortise is symmetric and the talar dome is intact. There is a small ankle joint effusion. There is moderate soft tissue swelling about the left ankle. IMPRESSION: Mildly displaced bimalleolar fractures of the left ankle. Dictated by: Dictated on workstation # [id number]
[2022-01-09] MEDS ORDERED: HYDR-3817 PO ×3 (16:54→16:57)
[2022-01-09] MEDS ORDERED: HYDROcodone/APAP 7.5 MG/325 MG (LORTAB, LORCET PLUS) TABLET PO ONE (17:00)
[2022-01-09 17:42] VITALS: BP 178/83
== END 2022-01-09 17:42 | disposition home or self-care (01) ==
LOC: EDUNIT# 15:27 → ER 15:29
DX: S82.842A Displaced bimalleolar fracture of left lower leg, initial encounter for closed fracture (principal); W11.XXXA Fall on and from ladder, initial encounter; Y92.009 Unspecified place in unspecified non-institutional (private) residence as the place of occurrence of the external cause
CPT/HCPCS: 27752; 29515; 73610

== ENCOUNTER 2022-01-13 10:38 | Outpatient (CLI) | payer BC ==
[~2022-01-13] VITALS: Ht 160 cm; Wt 96.4 kg
[~2022-01-13 10:38] MED LIST changes: +HYDR-3817 PO
[2022-01-13] MEDS ORDERED: GABA300S2 PO (15:14)
[2022-01-13] MEDS ORDERED: ESOM20CA58 PO (15:14)
[2022-01-13] MEDS ORDERED: LISI20TA26 PO (15:14)
[2022-01-13] MEDS ORDERED: OMEP20TA33 PO (15:14)
== END 2022-01-13 15:40 ==
LOC: PREOP 10:38
PROVIDERS: ATTEND Orthopaedic Surgery
DX: Z01.818 Encounter for other preprocedural examination (principal); S82.832A Other fracture of upper and lower end of left fibula, initial encounter for closed fracture; S82.52XA Displaced fracture of medial malleolus of left tibia, initial encounter for closed fracture; X58.XXXA Exposure to other specified factors, initial encounter

== ENCOUNTER 2022-01-15 09:21 | Day surgery (SDC) | payer BC ==
--- NOTE | 2022-01-14 07:49 | HISTORY AND PHYSICAL ---
DATE OF SERVICE: ADMISSION HISTORY AND PHYSICAL Date of service, surgery and outpatient treatment will be 01/15/2022. This will be for outpatient surgery on 01/15/2022 for left ankle internal fixation. HISTORY OF PRESENT ILLNESS: The patient is a 56-year-old female who fell off a stepladder a week ago. She was found to have a bimalleolar ankle fracture. She denies antecedent pain. She denies paresthesias. She reports no prior history of ankle problems. Radiographs showed displaced bimalleolar ankle fracture. In order to maintain her active lifestyle, the patient elected to proceed with surgical intervention. REVIEW OF SYSTEMS: No chest pain, no shortness of breath, no dysuria. PAST SURGICAL HISTORY: Cholecystectomy, appendectomy, mass removal. FAMILY HISTORY: Significant for diabetes, hypertension, hypercholesterolemia, reflux and coronary artery disease. MEDICATIONS: Metoprolol, Nexium, Prilosec, atorvastatin, lisinopril, gabapentin. ALLERGIES: ERYTHROMYCIN. SOCIAL HISTORY: The patient denies alcohol and tobacco use. PHYSICAL EXAMINATION: GENERAL: The patient is well-developed, well-nourished, in no acute distress. HEENT: Normocephalic, atraumatic. Pupils are equal, round and reactive to light. Oropharynx is clear. NECK: Supple, no lymphadenopathy. LUNGS: Clear to auscultation bilaterally. HEART: Regular rate and rhythm. ABDOMEN: Soft, nontender, nondistended. EXTREMITIES: Left ankle demonstrates mild edema. No skin lesions are noted. She is tender over the medial and lateral malleoli. She has intact dorsiflexion and plantar flexion toes. IMPRESSION: Displaced bimalleolar ankle fracture. PLAN: Open reduction and internal fixation of the left ankle medial and lateral malleolus. Risks, benefits, options, ramifications and recovery were discussed at length with the patient. She understands and wishes to proceed. Job ID: [id number] DocumentID: [id number] Dictated Date: 01/13/2022 09:54:06 Machine Binder Stripper Date: 01/13/2022 10:07:27 Dictated By: STEPHANIE SANDERS MD
[~2022-01-15] VITALS: Ht 160 cm; Wt 96.4 kg
[2022-01-15] VITALS (12 sets, daily range): BP systolic 159–188; BP diastolic 88–112
[~2022-01-15 09:21] MED LIST changes: +ESOM20CA58 PO; +GABA300S2 PO; +LACTATED RINGERS 1,000 ML IV PRN; +LISI20TA26 PO; +OMEP20TA33 PO; +oxyCODONE/APAP 5/325MG (PERCOCET 5) TABLET PO PRN
[2022-01-15] MEDS ORDERED: ceFAZolin INJECTION 2,000 MG in NS (IVPB) 50 ML IV ONE (10:00)
[2022-01-15] MEDS ORDERED: fentaNYL INJ 100 MCG/2 ML AMP IV ONE (10:15)
--- NOTE | 2022-01-15 10:20 | Progress Note-Post Operative ---
Post-Operative Progess Note Surgeon (s)/Stores Assistant (s) Surgeon STEPHANIE SANDERS MD Stores Assistant: Wilbur Gomez Pre-Operative Diagnosis left bimalleolar ankle fracture Post-Operative Diagnosis left bimalleolar ankle fracture Procedure & Operative Findings Date of Procedure 01/15/22 Procedure Performed/Findings ORIF left medial and lateral malleoli Anesthesia Type GETA Estimated Blood Loss Estimated blood loss (mL): minimal Specimens/Packing Specimens Removed none Packing: none STEPHANIE SANDERS MD Jan 15, 2022 10:20
--- NOTE | 2022-01-15 10:20 | Progress Note-Pre Operative ---
Pre-Operative Progress Note Date of Available H&P: Jan 13, 2022 Date H&P Reviewed: Jan 15, 2022 Time H&P Reviewed: 10:19 Changes from last HP none Pre-Operative Diagnosis: left bimalleolar ankle fracture STEPHANIE SANDERS MD Jan 15, 2022 10:20
[2022-01-15] MEDS ORDERED: MIDAZOLAM 2 MG/2 ML (VERSED) VIAL ONE (10:30)
[2022-01-15] MEDS ORDERED: ROCURONIUM 10 MG/ML 5 ML SYRINGE IV ONE (10:30)
[2022-01-15] MEDS ORDERED: ONDANSETRON 4 MG/2 ML (SDV) Z0FRAN ONE (10:30)
[2022-01-15] MEDS ORDERED: fentaNYL INJ 100 MCG/2 ML AMP ONE (10:30)
[2022-01-15] MEDS ORDERED: proPOfol 200 MG/20 ML (DIPRIVAN) VIAL IV ONE (10:30)
[2022-01-15] MEDS ORDERED: LIDOCAINE PF 2% 5 ML (XYLOCAINE) VIAL ONE (10:30)
[2022-01-15] MEDS: LACTATED RINGERS 1,000 ML IV PRN ×2 (10:35→12:11)
[2022-01-15] MEDS ORDERED: BUPIVACAINE 0.5% 30 ML (SENSORCAINE) VIAL ONE (10:40)
[2022-01-15] MEDS ORDERED: SEVOFLURANE (ULTANE) 15 ML INHAL SOLN ONE (12:22)
[2022-01-15] MEDS ORDERED: PROMETHAZINE INJ 25 MG/ML (PHENERGAN) AMP IVP ONE (12:45)
[2022-01-15] MEDS ORDERED: MEPERIDINE (DEMEROL) INJ 50 MG/ML IVP ONE (12:45)
[2022-01-15] MEDS ORDERED: morphine INJ 10 MG/ML 1ML (SYR OR VIAL) IVP ONE (12:45)
[2022-01-15] MEDS ORDERED: ONDANSETRON 4 MG/2 ML (SDV) Z0FRAN IVP PRN (12:45)
[2022-01-15] MEDS ORDERED: HYDROmorphone 2 MG/ML VIAL (DILAUDID) IV ONE (12:45)
--- NOTE | 2022-01-15 13:25 | Anesthesia-General Post-Op ---
General Patient Condition Mental Status/LOC: Same as Preop Cardiovascular: Satisfactory Nausea/Vomiting: Absent Respiratory: Satisfactory Pain: Controlled Complications: Absent Post Op Complications Complications None Follow Up Care/Instructions Patient Instructions None needed. Anesthesia/Patient Condition Patient Condition Patient is doing well, no complaints, stable vital signs, no apparent adverse anesthesia problems. No complications reported per nursing. AMANDA WESTON CRNA Jan 15, 2022 13:25
--- NOTE | 2022-01-15 15:22 | Physical Therapy Ortho Eval ---
PT Orthopedic Evaluation Type of Surgery LLE bimalleolar fx, NWB Prior Level of Function Current Living Status: Spouse Patient was using crutches and knee scooter before falling Subjective Subjective Patient in bed pre tx, agrees to PT, needs to use the restroom, has 7/10 pain in left leg. Patient has a cam boot on LLE. Entry Into Home: Stairs With Railing Steps Into Home: 2 Motor Control Motor Control: Motor Control WNL Transfer SCALE: Activities may be completed with or without assistive devices. 0-Lzicjsbeco-qjpeoqj completes the activity by him/herself with no assistance from a helper. 5-Set-up or Clean-up Assistance-helper sets up or cleans up; patient completes activity. [place] assists only prior to or following the activity. 4-Supervision or Touching Assistance-helper provides verbal cues and/or touching/steadying and/or contact guard assistance as patient completes activity. Assistance may be provided throughout the activity or intermittently. 3-Partial/Moderate Assistance-helper does LESS THAN HALF the effort. [place] lifts, holds or supports trunk or limbs, but provides less than half the effort. 2-Substantial/Maximal Assistance-helper does MORE THAN HALF the effort. [place] lifts or holds trunk or limbs and provides more than half the effort. 4-Scodekkwi-kmsupb does ALL the effort. Patient does none of the effort to complete the activity. Or, the assistance of 2 or more helpers is required for the patient to complete the activity. If activity was not attempted, code reason: 7-Patient Refused. 9-Not Applicable-not attempted and the patient did not perform the activity before the current illness, exacerbation or injury. 10-Not Attempted due to Environmental Limitations-(lack of equipment, weather restraints, etc.). 88-Not Attempted due to Medical Conditions or Safety Concerns. Transfers (B, C, W/C) (QC): 4 Gait Summary/Comments Patient ambulated 20' to restroom using rolling walker with CGA, she was compliant with NWB on LLE, although doctor says she can just barely touch toes to floor for balance. Patient has poor foot clearance, she cannot go up and down any steps at this time. Recommended patient put an arm around each daughter (she had 2 of them with her), bear weight on them and then hop up on her right leg. Treatment Rendered Treatment: Therapeutic Exercises, Gait Train Exercise Instruction: Quad Sets, Heel Slides Assessment/Goals Goal Time Frame: 1 Visit Understands HEP: Yes Safe Ambulation: Yes Plan Treatment Plan: Discharge PT/Family Agrees to Plan: Yes Time Time In: 1454 Time Out: 1513 Total Billed Treatment Time: 19 Billed Treatment Time 1 visit EVL 19' ISAI PEARL PT Jan 15, 2022 15:22
--- NOTE | 2022-01-15 16:05 | Diagnostic Imaging Report ---
INDICATION: Fluoroscopy for ankle ORIF. Fluoroscopy was provided in the OR during left ankle ORIF. 53 seconds of fluoroscopic time was utilized. 2 images were obtained demonstrating a lateral plate numerous screws transfixing distal fibula. There are multiple partially threaded a distal tibial screws. Overall alignment is anatomic. IMPRESSION: Fluoroscopy for ankle ORIF. Dictated by: Dictated on workstation # [id number]
--- NOTE | 2022-01-15 20:09 | OPERATIVE REPORT ---
DATE OF SERVICE: 01/15/2022 PREOPERATIVE DIAGNOSIS: Closed displaced left bimalleolar ankle fracture. POSTOPERATIVE DIAGNOSIS: Closed displaced left bimalleolar ankle fracture. PROCEDURES PERFORMED: 1. Open reduction and internal fixation, left medial malleolus. 2. Open reduction and internal fixation of left lateral malleolus. SURGEON: Fred Blum MD ANIMAL TAXONOMIST: Wilbur Gomez, who assisted throughout the procedure and closed the incisions. ANESTHESIA: General endotracheal by Kareem Grant CRNA. TOURNIQUET TIME: Approximately 60 minutes at 300 mmHg. ESTIMATED BLOOD LOSS: Minimal. DRAINS: None. COMPLICATIONS: None. POSTOPERATIVE PLAN: Toe touch weightbearing on the left lower extremity. The patient was transferred to recovery room awake and stable condition. STATEMENT OF MEDICAL NECESSITY: The patient is a 56-year-old female who fell last week and sustained a bimalleolar ankle fracture. The medial malleolus demonstrated a shear type injury with a vertical component of the lateral malleolus was a transverse Willams type B fracture. The patient was counseled that this was an unstable injury and because of this, I elected to proceed with surgical intervention. DESCRIPTION OF PROCEDURE: After risks and benefits of procedure were discussed and questions were answered, informed consent was signed and placed on chart, the operative site was confirmed in the preoperative holding area initialed by the surgeon. The patient was then transferred to the operating room and after adequate levels of general endotracheal anesthetic were obtained, a timeout was called, confirming the operative site. The left lower extremity was prepped and draped in the usual sterile fashion with the leg elevated, tourniquet was inflated to 300 mmHg. Standard distal fibular approach was made. The underlying soft tissues were carefully dissected. The fracture was reduced and a Synthes distal fibular plate was placed with three cortical screws placed proximally and four cortical screws placed distally, all with excellent purchase. Fluoroscopy in the AP, lateral and oblique planes revealed anatomic reduction of the fracture with well-placed hardware. An incision was then made over the medial malleolus. The underlying soft tissues were carefully dissected. The fracture was reduced at the articular surface and three 4.0 cannulated cancellous screws were placed across the fracture site in a perpendicular fashion with one placed anteriorly. The fracture was reduced anatomically at the articular surface. There was some mild elevation of the anterior cortex, but this was felt to be acceptable. The ankle was stressed under live time fluoroscopy and the mortise and syndesmosis were intact with no widening of the fracture noted. The fluoroscopy in the AP, lateral and oblique planes revealed well reduced fractures with well-placed hardware. The wounds were copiously irrigated, 0 Vicryl was used to close deep subcutaneous layer over the fibular plate, 3-0 Vicryl was used for subcutaneous tissue in both incisions and skin was closed with horizontal mattress interrupted fashion. The incisions were infiltrated with plain Marcaine. A soft dressing and a boot were applied and the patient was transferred to the recovery room awake and in stable condition. Job ID: [id number] DocumentID: [id number] Dictated Date: 01/15/2022 12:25:09 Charge Master Coordinator Date: 01/15/2022 20:09:03 Dictated By: FRED BLUM MD
== END 2022-01-15 15:20 | disposition home or self-care (01) ==
LOC: SDC 09:21
PROVIDERS: ATTEND Orthopaedic Surgery
DX: S82.842A Displaced bimalleolar fracture of left lower leg, initial encounter for closed fracture (principal); W11.XXXA Fall on and from ladder, initial encounter; E11.9 Type 2 diabetes mellitus without complications; E66.01 Morbid (severe) obesity due to excess calories; Z68.38 Body mass index [BMI] 38.0-38.9, adult; Z79.4 Long term (current) use of insulin
CPT/HCPCS: 27814; 76000; 82947; 87081; 97161; C1713 ×6

== ENCOUNTER → 2022-05-02 | Outpatient (CLI) | payer BC ==
[~2022-05-02] VITALS: Ht 160 cm; Wt 97.7 kg
[~2022-05-02] MED LIST changes: -LACTATED RINGERS 1,000 ML IV PRN; +LIDOCAINE 1% INJ 30 ML (XYLOCAINE) VIAL INJ ONE; -oxyCODONE/APAP 5/325MG (PERCOCET 5) TABLET PO PRN
--- NOTE | 2022-05-02 10:18 | Diagnostic Imaging Report ---
INDICATION: Left breast mass. The patient presents for ultrasound-guided biopsy. The patient was brought to the sonographic suite and placed on the table in the supine position. Ultrasound imaging of the left breast was performed to evaluate appropriate entry site. Left breast was then prepped and draped in the usual sterile fashion. A small amount of 1% lidocaine was utilized for local anesthesia. A total of 4 passes were made into the hypoechoic nodule at the 12:00 location of the left breast utilizing the 14-gauge Achieve needle. A marker clip was then deployed. Hemostasis was obtained using manual compression. The patient tolerated the procedure well and was sent for post procedure mammogram in satisfactory condition. IMPRESSION: Successful ultrasound-guided core biopsy of the solid nodule at the 12:00 location in the left breast. Pathology results are currently pending. Dictated by: Dictated on workstation # [id number]
--- NOTE | 2022-05-02 12:26 | Diagnostic Imaging Report ---
INDICATION: Left breast nodule. Patient status post ultrasound-guided biopsy. Unilateral left 2-D CC and ML mammography was performed after patient underwent ultrasound-guided core biopsy. There is a marker clip in the upper central left breast. IMPRESSION: Marker clip placement, upper left breast, status post ultrasound-guided core biopsy. Dictated by: Dictated on workstation # [id number]
== END ==
LOC: RAD 08:45
PROVIDERS: ATTEND Family Medicine
DX: N63.20 Unspecified lump in the left breast, unspecified quadrant (principal); Z98.82 Breast implant status
CPT/HCPCS: 19083; 77065; G0279

== ENCOUNTER 2022-05-21 11:41 | Outpatient (CLI) | payer BC ==
[~2022-05-21] VITALS: Ht 160 cm; Wt 98.2 kg
[~2022-05-21 11:41] MED LIST changes: -LIDOCAINE 1% INJ 30 ML (XYLOCAINE) VIAL INJ ONE
[2022-05-21] MEDS ORDERED: TIRZ5PEN SQ (12:14)
[2022-05-22] MEDS ORDERED: HYDR-3817 PO (10:27)
== END 2022-05-21 12:38 | disposition home or self-care (01) ==
LOC: PREOP 11:41
PROVIDERS: ATTEND Surgery
DX: Z01.818 Encounter for other preprocedural examination (principal)

== ENCOUNTER 2022-05-22 10:15 | Day surgery (SDC) | payer BC ==
[~2022-05-22] VITALS: Ht 160 cm; Wt 98.2 kg
[2022-05-22] VITALS (12 sets, daily range): BP systolic 139–164; BP diastolic 77–97
--- NOTE | 2022-05-22 06:46 | HISTORY AND PHYSICAL ---
DATE OF SERVICE: 05/22/2022 DATE OF ADMISSION: 05/22/2022 ATTENDING PRIMARY CARE PHYSICIAN: Dr. Dave Baker HISTORY OF PRESENT ILLNESS: The patient is a 57-year-old female who inadvertently fell to the lesion of her left breast at the end of March 2022. She just felt an itch in the left breast and then felt the lesion. She was then seen by her physician and she underwent a mammogram as well as an ultrasound-guided biopsy, which did come back as a low-grade invasive ductal cancer. The receptor status was favorable and estrogen and progesterone positive, HER-2/ann-marie negative, and Ki-67 index of only 12%. The lesion was also small at 1.6 x 1.1 cm in size and there are no obvious palpable lymph nodes. The patient reports getting yearly mammograms at age 40. She does not do her breast self examinations on a monthly basis. She states that she does get an exam by a physician on a yearly basis. She does not report any nipple discharge; however, since identifying the lesion states that she does notice some mild dimpling of the skin. This was her first breast biopsy in her life. She started menses at around age 11 and underwent a surgical menopause with a hysterectomy and unilateral salpingo-oophorectomy in 1988 and a completion oophorectomy in 2009. She has been 3 times and given 3 live childbirth however, one was premature and did not survive. She breastfed the oldest child. She did take oral contraceptive pills for a short duration of approximately 2 years. She does have some relevant history of cancers including a paternal aunt with breast cancer, mother with chondrosarcoma and a maternal grandmother with gastric cancer. PAST MEDICAL HISTORY: Hypertension, diabetes, hypercholesterolemia and colitis. PAST SURGICAL HISTORY: Open cholecystectomy and appendectomy in 1986, hysterectomy, open and unilateral salpingo-oophorectomy in 1987, laparoscopic removal of remaining ovary in 2009. ALLERGIES: EFFEXOR, ERYTHROMYCIN AND JARDIANCE MEDICATIONS: Lisinopril 10 mg daily, detemir insulin 35 units daily, promethazine q.6 hours p.r.n., Lasix 40 mg daily, lispro insulin 10 units t.i.d., Toprol-XL 50 mg daily, Januvia 100 mg daily, atorvastatin 10 mg daily, aspartate insulin 10 units t.i.d., cyclobenzaprine 10 mg p.r.n. and Mounjaro 5 mg weekly. SOCIAL HISTORY: Negative smoking, negative alcohol. FAMILY HISTORY: Paternal aunt with breast cancer. Mother with chondrosarcoma. Maternal grandmother with gastric cancer. VITAL SIGNS: Stable. Current weight 216.4 pounds, 5 feet 4 inches. Blood pressure 140/90. REVIEW OF SYSTEMS: GENERAL: Well-nourished female in no acute distress. She is not experiencing any shortness of breath or difficulty breathing. No chest pain, palpitations, diaphoresis. No nausea, vomiting. No constipation, no diarrhea. No fever or chills. No recent inadvertent weight loss. All other review of systems negative. PHYSICAL EXAMINATION: CHEST: Clear, good breath sounds bilaterally. HEART: Regular, no murmurs. EXTREMITIES: No lower extremity edema. Negative Homans sign. HEENT: No scleral icterus. No cervical lymphadenopathy. ABDOMEN: Soft, nontender, nondistended. BREASTS: There is a palpable lesion at approximately the 12 o'clock position just at the edge of the nipple areolar complex or just superior which is small and easily movable; however, slightly tender to palpation. ASSESSMENT AND PLAN: A 57-year-old female with a left breast invasive ductal carcinoma, which is estrogen and progesterone receptor positive, HER-2 negative, Ki-67 index, which is low at 12% and the lesion being small at 1.6 x 1.1 cm and no obvious lymphadenopathy on physical examination. We will proceed with a lumpectomy and a sentinel node biopsy and likely postoperative radiation to prevent local reoccurrence as well as an aromatase inhibitor for the next 5 years, such as Arimidex. Job ID: [id number] DocumentID: [id number] Dictated Date: 05/20/2022 17:19:44 Membership Manager Date: 05/20/2022 17:41:00 Dictated By: HELDER CARRENO MD [facility]
[~2022-05-22 10:15] MED LIST changes: +TIRZ5PEN SQ
--- NOTE | 2022-05-22 10:25 | Progress Note-Pre Operative ---
Pre-Operative Progress Note Date H&P Reviewed: May 22, 2022 Time H&P Reviewed: 10:25 History & Physical: H&P Reviewed, Patient Examed, No changes noted Pre-Operative Diagnosis: Left breast Cancer FILEMON HARRELL APRN May 22, 2022 10:25
[2022-05-22] MEDS ORDERED: HYDR-3817 PO (10:27)
--- NOTE | 2022-05-22 10:27 | Discharge Inst-Surgical ---
D/C Lap Instructions-KIDO Reconcile Patient Problems Problems Reviewed?: Yes New, Converted, or Re-Newed RX: RX on Chart Follow Up Appt in 2 weeks Activity as tolerated No driving for 24 hours No driving while on pain medications Incentive Spirometry use every 2 hours while awake Regular Diet Symptoms to Report: Fever over 101 degree F, Nausea/Vomiting Infection Signs and Symptoms to report: Increased redness, Foul odor of wound, Increased drainage Bathing instructions: May shower Operative Area Clean/Dry; Keep incision clean/dry If any problems/questions: Contact your physician or go to Emergency Room FILEMON HARRELL APRN May 22, 2022 10:27
[2022-05-22] MEDS ORDERED: morphine INJ 10 MG/ML 1ML (SYR OR VIAL) IVP PRN (10:30)
[2022-05-22] MEDS ORDERED: HYDROcodone/APAP 5 MG/325 MG (LORTAB) TAB PO ONE (10:30)
[2022-05-22] MEDS ORDERED: ACETAMINOPHEN 325 MG TABLET PO PRN (10:30)
[2022-05-22] MEDS ORDERED: ONDANSETRON 4 MG/2 ML (SDV) Z0FRAN IVP PRN ×2 (10:30→16:30)
[2022-05-22] MEDS ORDERED: ceFAZolin INJECTION 2,000 MG in NS (IVPB) 50 ML IV ONE (11:15)
[2022-05-22] MEDS ORDERED: MIDAZOLAM 2 MG/2 ML (VERSED) VIAL ONE ×2 (12:44→14:20)
[2022-05-22] MEDS ORDERED: ONDANSETRON 4 MG/2 ML (SDV) Z0FRAN ONE ×2 (12:44→14:19)
[2022-05-22] MEDS ORDERED: FAMOTIDINE 20MG/2ML IV (PEPCID) IVP ONE (13:00)
[2022-05-22] MEDS ORDERED: MIDAZOLAM 2 MG/2 ML (VERSED) VIAL IVP ONE (13:00)
[2022-05-22] MEDS ORDERED: ONDANSETRON 4 MG/2 ML (SDV) Z0FRAN IVP ONE (13:00)
[2022-05-22] MEDS: LACTATED RINGERS 1,000 ML IV PRN ×2 (13:26→15:53)
[2022-05-22] MEDS ORDERED: BUP/EPI 0.5% 1:200,000 (SENSORCAINE) 30 ML VIAL ONE (13:34)
[2022-05-22] MEDS ORDERED: proPOfol 200 MG/20 ML (DIPRIVAN) VIAL IV ONE (14:19)
[2022-05-22] MEDS ORDERED: LIDOCAINE PF 2% 5 ML (XYLOCAINE) VIAL ONE (14:19)
[2022-05-22] MEDS ORDERED: fentaNYL INJ 100 MCG/2 ML AMP ONE ×3 (14:19→16:28)
[2022-05-22] MEDS ORDERED: SEVOFLURANE (ULTANE) 15 ML INHAL SOLN ONE (14:19)
[2022-05-22] MEDS ORDERED: METHYLENE BLUE 0.5% (PROVAYBLUE) 50 mg/10 ml vial IV ONE (14:56)
--- NOTE | 2022-05-22 16:13 | Progress Note-Post Operative ---
Post-Operative Progess Note Surgeon (s)/Paint Technician (s) Surgeon HELDER CARRENO MD Paint Technician: janey degroot WEB DATABASE DEVELOPER Pre-Operative Diagnosis Left breast Cancer Post-Operative Diagnosis same Procedure & Operative Findings Date of Procedure 05/22/22 Procedure Performed/Findings left breast lumpectomy, subdermal injection, deep axillary sentinel lymph node bx. Anesthesia Type general LMA Estimated Blood Loss Estimated blood loss (mL): minimal Specimens/Packing Specimens Removed left breast sentinel node and breast lesion. HELDER CARRENO MD May 22, 2022 16:13
--- NOTE | 2022-05-22 16:26 | Anesthesia-General Post-Op ---
General Patient Condition Mental Status/LOC: Same as Preop Cardiovascular: Satisfactory Nausea/Vomiting: Absent Respiratory: Satisfactory Pain: Controlled Complications: Absent Post Op Complications Complications None Follow Up Care/Instructions Patient Instructions None needed. Anesthesia/Patient Condition Patient Condition Patient is doing well, no complaints, stable vital signs, no apparent adverse anesthesia problems. No complications reported per nursing. DL THOMPSON CRNA May 22, 2022 16:26
[2022-05-22] MEDS ORDERED: HYDROmorphone 2 MG/ML VIAL (DILAUDID) IV ONE (16:30)
[2022-05-22] MEDS ORDERED: fentaNYL INJ 100 MCG/2 ML AMP IVP ONE (16:30)
--- NOTE | 2022-05-22 16:55 | Diagnostic Imaging Report ---
INDICATION: Left breast malignancy. Patient presents for left breast lymphoscintigraphy. Patient was given a total of 1.01 mCi technetium 99m Lymphoseek in 4 separate aliquots, injected in the periareolar distribution of the left breast. Imaging was then performed. There was migration of activity to left axilla. This area was marked on the patient's skin. Patient tolerated the procedure well and was sent to same day surgery in satisfactory condition. IMPRESSION: Successful left breast lymphoscintigraphy, as described. Dictated by: Dictated on workstation # [id number]
[2022-05-22] MEDS ORDERED: HYDROcodone/APAP 5 MG/325 MG (LORTAB) TAB ONE (17:35)
--- NOTE | 2022-05-22 21:06 | OPERATIVE REPORT ---
DATE OF SERVICE: 05/22/2022 ATTENDING PRIMARY CARE PHYSICIAN: Dr. Dave Baker. PREOPERATIVE DIAGNOSIS: Left breast cancer. POSTOPERATIVE DIAGNOSIS: Left breast cancer. PROCEDURE: Subdermal injection, left breast lumpectomy, deep axillary sentinel lymph node biopsy. SURGEON: Helder Carreno MD HIGH SCHOOL SOCIAL STUDIES TUTOR: Dave Rodriguez APRN ANESTHESIA: General laryngeal mask airway with local. ESTIMATED BLOOD LOSS: Minimal. FINDINGS: Preliminary frozen section of the sentinel lymph node negative with the nuclear counter at 67,000 and the background at 699. DISPOSITION: The patient tolerated the procedure well. INDICATIONS: The patient is a 57-year-old female who inadvertently felt lesion on her left breast at the end of 03/2022. She just felt an itch in the left breast and then felt the lesion. She was seen by her physician and did undergo mammogram and ultrasound-guided biopsy, which did come back as a low-grade invasive ductal cancer. Her receptor status was favorable with estrogen and progesterone positivity and HER-2 negative and a Ki-67 index of only 12%. The lesion was also small at 1.6 x 1.1 cm in size with no obvious palpable lymph nodes. The patient has been getting yearly mammograms since age 40; however, did skip in 2020. She does not do breast self examinations on a monthly basis. She does state that she gets an exam by a physician on a yearly basis. She does not report any nipple discharge; however, since identifying the lesion she states that she has noticed some mild dimpling of the skin. This has been her first breast biopsy. She started menses at around age 11, underwent surgical menopause with a hysterectomy and unilateral salpingo-oophorectomy in 1988 and completion oophorectomy in 2009. She has been 3 times and given 3 live childbirths however, one was premature and did not survive. She breastfed her oldest child. She did take oral contraceptive pills for a short duration of approximately 2 years. She does have a relevant history of cancers including a paternal aunt with breast cancer, mother with chondrosarcoma and a maternal grandmother with gastric cancer. DESCRIPTION OF PROCEDURE: The patient was brought to the operating room, laid supine on the table. After adequate IV pain sedative medications and general laryngeal mask airway intubation, the chest, neck and axilla, upper extremity were prepped and draped in standard surgical fashion. Before this, we proceeded with subdermal injection of isosulfan blue in 4 quadrants of the nipple areolar complex and massaged this in for 15 minutes. We first proceeded with excision of the axillary sentinel lymph node using the nuclear counter. This was identified as well as the marking on earlier lymphoscintigraphy. An oblique incision was made along the anterior axillary line in the subcutaneous tissue and the clavipectoral fascia was then opened using electrocautery. We then proceeded with blunt dissection until the node was identified, which was stained blue in coloration and did light up significantly on the nuclear counter. The lymph node was then excised using electrocautery. Good hemostasis was observed. The nuclear count on the node was 67,000 and the background was 699 and far less than 10% and consistent with the sentinel lymph node. This was then sent to pathology, which preliminarily came back as negative for malignancy. We then proceeded with excision of the breast lesion, which was palpable at approximately 12-1 o'clock position just above the nipple areolar complex. The area was anesthetized using 1% lidocaine with epinephrine. A crescent-shaped skin incision made using a #15 blade. The lesion was then fully excised using Janet clamps to retract the lesion anteriorly and excising the lesion as well as a rim of normal-appearing breast tissue using electrocautery with visualization with good hemostasis. This was sent to pathology for permanent. Good hemostasis was observed. Both the excision sites were then irrigated with sterile water and closed in a layered fashion approximating the subcutaneous tissue using 3-0 Vicryl interrupted sutures. Another layer was then used to close the subcutaneous layer using interrupted 3-0 Vicryl sutures and both skin incisions were closed using 4-0 Monocryl running subcuticular sutures. Wounds were then cleaned and covered with Dermabond. The breasts were then wrapped with a 6-inch Dominic wrap. The patient tolerated the procedure well. We will start IV and oral pain medication as well as a clear liquid diet. She may take the Dominic bandage off tomorrow and then to wear some type of a supportive garment with padding to prevent seroma formation. We will also advise her to do no heavy lifting or exertion for the next 2 weeks. Job ID: [id number] DocumentID: [id number] Dictated Date: 05/22/2022 16:24:42 Marketing Intelligence Manager Date: 05/22/2022 21:04:00 Dictated By: HELDER CARRENO MD MTDD
== END 2022-05-22 18:30 | disposition home or self-care (01) ==
LOC: CARD 10:15
PROVIDERS: ATTEND Surgery
DX: C50.412 Malignant neoplasm of upper-outer quadrant of left female breast (principal); K21.9 Gastro-esophageal reflux disease without esophagitis; E11.9 Type 2 diabetes mellitus without complications; E66.9 Obesity, unspecified; Z68.38 Body mass index [BMI] 38.0-38.9, adult; Z79.4 Long term (current) use of insulin; Z79.84 Long term (current) use of oral hypoglycemic drugs; Z79.899 Other long term (current) drug therapy; Z87.891 Personal history of nicotine dependence; Z17.0 Estrogen receptor positive status [ER+]
CPT/HCPCS: 19301; 38525; 78195; 82947; 87081; A9520

== ENCOUNTER → 2022-07-08 | Outpatient (CLI) | payer BC ==
--- NOTE | 2022-07-08 16:38 | Diagnostic Imaging Report ---
INDICATION: Postmenopausal female COMPARISON: None FINDINGS: AP Spine L2-L4: [BMD (g/cm2): 0.756] [T-Score: -3.7] [Z-Score: -3.8] [BMD Previous: na] [BMD % Change: na] LT Hip Neck: [BMD (g/cm2): 0.771] [T-Score: -1.9] [Z-Score: -1.5] LT Hip Total: [BMD (g/cm2):0.865] [T-Score:-1.1] [Z-Score: -1.1] [BMD Previous: na] [BMD % Change: na] RT Hip Neck: [BMD (g/cm2):0.814] [T-Score:-1.6] [Z-Score:-1.2] RT Hip Total: [BMD (g/cm2):0.874] [T-score:-1.1] [Z-Score:-1.1] [BMD Previous:na] [BMD % Change:na] *Indicates significant change from prior examination based on 95% confidence level. World Health Organization criteria for BMD interpretation classify patients as Normal (T-score at or above -1.0), Osteopenic (T-score between -1.0 and -2.5) or Osteoporotic (T-score at or below -2.5). LIMITATIONS AND MODIFICATION: None. FRACTURE RISK (FRAX SCORE): History of a parent with a hip fracture. The ten year probability of (%): Major Osteoporotic Fracture: [NA] Hip Fracture: [NA] IMPRESSION: 1. Osteoporosis. 2. Baseline examination. 3. See below National Osteoporosis Foundation guidelines on when to potentially initiate pharmacologic therapy. Based on the National Osteoporosis Foundation Guidelines, pharmacologic treatment should be initiated in any of the following, unless clinical conditions suggest otherwise: * Any patient with prior fragility fracture of the hip or vertebrae. A spine fracture indicates 5X risk for subsequent spine fracture and 2X risk for subsequent hip fracture. * Osteoporosis (T-score <-2.5). * Postmenopausal women and men age 50 and older with low bone mass/osteopenia (T-score between -1.0 and -2.5) by DXA and 10-year major osteoporotic fracture greater than 20% or a 10-year probability of hip fracture greater than 3%. These fracture risks are supplied above in the FRAX score, if applicable. * Clinician judgement and/or patient preferences may indicate treatment for people with 10-year fracture probabilities above or below these levels. Dictated by: Dictated on workstation # [id number]
== END ==
LOC: RAD 14:00
PROVIDERS: ATTEND Internal Medicine Hematology & Oncology
DX: M81.0 Age-related osteoporosis without current pathological fracture (principal); C50.412 Malignant neoplasm of upper-outer quadrant of left female breast; Z78.0 Asymptomatic menopausal state
CPT/HCPCS: 77080

== ENCOUNTER → 2022-07-18 | Outpatient (RCR) | payer BC | END | disposition home or self-care (01) | LOC: ONC 06-25 08:29 | PROVIDERS: ATTEND Radiology Radiation Oncology | DX: I25.10 Atherosclerotic heart disease of native coronary artery without angina pectoris (principal); I10 Essential (primary) hypertension; E78.2 Mixed hyperlipidemia | CPT/HCPCS: 77290; 77295; 77300; 77307; 77334; 77336; 77417; 99205; 99215 ==

== ENCOUNTER 2022-07-25 08:45 | Outpatient (RCR) | payer BC ==
[~2022-07-25 08:45] MED LIST changes: -GABA300S2 PO; +GABA300S3 PO
== END 2022-08-17 | disposition home or self-care (01) ==
LOC: ONC 08:45
PROVIDERS: ATTEND Radiology Radiation Oncology
DX: Z51.0 Encounter for antineoplastic radiation therapy (principal); I25.10 Atherosclerotic heart disease of native coronary artery without angina pectoris; I10 Essential (primary) hypertension; E78.2 Mixed hyperlipidemia
CPT/HCPCS: 77336; 77417

== ENCOUNTER 2022-08-21 10:51 | Outpatient (RCR) | payer BC | END 2022-09-17 | disposition home or self-care (01) | LOC: ONC 10:51 | PROVIDERS: ATTEND Radiology Radiation Oncology | DX: C50.412 Malignant neoplasm of upper-outer quadrant of left female breast (principal); I25.10 Atherosclerotic heart disease of native coronary artery without angina pectoris; I10 Essential (primary) hypertension; E78.2 Mixed hyperlipidemia | CPT/HCPCS: 99213 ==

== ENCOUNTER → 2023-01-19 | Outpatient (CLI) | payer BC ==
--- NOTE | 2023-01-19 13:08 | Diagnostic Imaging Report ---
Indication: Left breast carcinoma. Patient is status post lumpectomy 6 months earlier. Comparison is made prior exam 04/29/2022. 2-D and 3-D bilateral diagnostic mammography was performed with CAD. The current study was also evaluated with a Computer Aided Detection (CAD) system. Both breasts are heterogeneously dense, limiting sensitivity of mammography. There are post therapeutic changes in the left breast. No discrete mass or malignant-appearing microcalcifications are seen. Axillae are unremarkable. IMPRESSION: BI-RADS Category 3 Post-therapeutic changes in the left breast. Continued follow-up is recommended. ACR BI-RADS Category 3: Probably benign findings. Result letter will be mailed to the patient. Note: At least 10% of breast cancer is not imaged by mammography. Dictated by: Dictated on workstation # [id number]
== END ==
LOC: RAD 12:32
PROVIDERS: ATTEND Internal Medicine Hematology & Oncology
DX: C50.412 Malignant neoplasm of upper-outer quadrant of left female breast (principal); Z79.811 Long term (current) use of aromatase inhibitors; Z90.12 Acquired absence of left breast and nipple
CPT/HCPCS: 77066; G0279; 77062